=== PATIENT | male | born 1965 | race Caucasian/White ===

== ENCOUNTER → 2019-06-15 | Outpatient (CLI) | payer BC ==
--- NOTE | 2019-06-15 14:04 | XR ---
Left knee HISTORY: Knee pain 3 views of the left knee Bone mineralization, joint spaces and alignment are maintained. No fracture or dislocation. Suprapate llar increased density. There is soft tissue swelling IMPRESSION: Suspect joint effusion, correlate. Soft tissue swelling.
== END | disposition home or self-care (01) ==
LOC: RADXRMAIN 10:50
PROVIDERS: ATTEND Physician Assistant
DX: M25.462 Effusion, left knee (principal)

== ENCOUNTER → 2020-04-21 | Outpatient (CLI) | payer BC | END | disposition home or self-care (01) | LOC: LABWHC1 14:09 | PROVIDERS: ATTEND Family Medicine | DX: R51 Headache (principal); R68.83 Chills (without fever); M62.81 Muscle weakness (generalized); R43.9 Unspecified disturbances of smell and taste | CPT/HCPCS: U0003; C9803 ==

== ENCOUNTER → 2021-04-01 | Outpatient (CLI) | payer BC ==
--- NOTE | 2021-04-01 14:54 | XR ---
EXAMINATION TYPE: XR cervical spine comp DATE OF EXAM: 04/01/2021 COMPARISON: NONE HISTORY: Pain TECHNIQUE: Four views are submitted. FINDINGS: The odontoid is intact. There are no compression deformities. The prevertebral soft tissue structur es are within normal limits. There is moderate to severe degenerative disc disease C5-C6 with anterio r osteophyte formation and posterior spondylosis. IMPRESSION: 1. Moderate to severe degenerative disc disease C5-C6 consider follow-up MRI.
--- NOTE | 2021-04-01 14:55 | XR ---
EXAM TYPE: LUMBAR SPINE X RAY SERIES COMPARISON: NONE HISTORY: Pain TECHNIQUE: 4 views are submitted. FINDINGS: Alignment is anatomic. The pedicles are intact. The transverse processes are intact. There is mult ilevel mild to moderate degenerative disc disease most marked at levels 4-5 and L5-S1. Facet arthropa thy at levels L4-5 and L5-S1. Slight anterolisthesis of L4 on L5. IMPRESSION: 1. Multilevel degenerative disc disease with advanced facet arthropathy involving the lower lumbar sp ine. Suspect foraminal encroachment L4-5 and L5-S1. 2. Mild grade 1 anterolisthesis L4 on L5.
--- NOTE | 2021-04-01 14:56 | XR ---
EXAMINATION TYPE: XR pelvis AP view DATE OF EXAM: 04/01/2021 COMPARISON: NONE HISTORY: Pain The osseous structures are intact and the joint spaces are preserved. No acute fracture is seen. Vi sualized bowel gas pattern is nonspecific. Hypertrophic changes of the acetabulum. Calcifications in the pelvis likely vascular. Very mild sclerosis involving the inferior left SI joint. IMPRESSION: 1. Cannot exclude a mild left-sided sacroiliitis..
== END | disposition home or self-care (01) ==
LOC: RADXRMAIN 14:22
PROVIDERS: ATTEND Nurse Practitioner Family
DX: M50.322 Other cervical disc degeneration at C5-C6 level (principal); M51.36 Other intervertebral disc degeneration, lumbar region; M43.16 Spondylolisthesis, lumbar region; M47.816 Spondylosis without myelopathy or radiculopathy, lumbar region
CPT/HCPCS: 72050; 72110; 72170

== ENCOUNTER 2022-05-27 10:09 | Emergency (ER) | payer OTHER, BC ==
[2022-05-27 10:21] VITALS: BP 139/88; PULSE 65; RESP 18; TEMP 98.3
[2022-05-27] MEDS ORDERED: LIDOCAINE 1% INJ 10MG/ML (30 ML VIAL-PF) SQ ONE (11:09)
--- NOTE | 2022-05-27 11:09 | ED ---
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 He reports the cut came from the tile itself. He denies any fragments from the tile or range of motion impairment. He states that his tetanus vaccination is up-to-date. He denies any other complaints or concerns at this time. He has a past medical history significant for hyperlipidemia, hypertension and hypothyroidism. (Azra Vitale) - Related Data Home Medications Medication Instructions Recorded Confirmed Fluticasone Nasal [place] [Flonase 2 spr EA NOSTRIL DAILY PRN 12/26/15 12/31/15 Nasal [place]] Hydrocodone/Acetaminophen 1 tab PO Q6H PRN 12/26/15 12/31/15 [Hydrocodon-Acetaminophen 5-325] LORazepam [Lorazepam] 1 mg PO Q8H PRN 12/26/15 12/31/15 Levothyroxine Sodium [Synthroid] 25 mcg PO HS 12/26/15 12/31/15 Lisinopril/Hydrochlorothiazide 1 tab PO HS 12/26/15 12/31/15 [Lisinopril-Hctz 20-25 mg Tab] Naproxen 500 mg PO BID PRN 12/26/15 12/31/15 Venlafaxine HCl [Venlafaxine HCl 150 mg PO HS 12/26/15 12/31/15 ER] Previous Rx's Medication Instructions Recorded Pantoprazole Sodium [Protonix] 20 mg PO DAILY #30 tab 12/31/15 Allergies Allergy/AdvReac Type Severity Reaction Status Date / Time No Known Allergies Allergy Verified 05/27/22 10:20 Review of Systems ROS Other: All systems not noted in ROS Statement are negative. <Azra Vitale - Last Filed: 06/01/22 17:02> ROS Other: All systems not noted in ROS Statement are negative. <BatresAndrey - Last Filed: 06/02/22 20:53> ROS Statement: Those systems with pertinent positive or pertinent negative responses have been documented in the HPI. Past Medical History Past Medical History: Hyperlipidemia, Hypertension, Thyroid Disorder History of Any Multi-Drug Resistant Organisms: None Reported Past Surgical History: Appendectomy Additional Past Surgical History / Comment(s): sinus surgery Past Anesthesia/Blood Transfusion Reactions: Motion Sickness Past Psychological History: Anxiety, Panic Disorder Smoking Status: Never smoker Past Alcohol Use History: None Reported Past Drug Use History: None Reported - Past Family History Mother Additional Family Medical History / Comment(s): yony Father Family Medical History: Hypertension Additional Family Medical History / Comment(s): anxiety <Azra Vitale - Last Filed: 06/01/22 17:02> General Exam Limitations: no limitations General appearance: alert, in no apparent distress Head exam: Present: atraumatic, normocephalic, normal inspection Eye exam: Present: normal appearance, PERRL, EOMI. Absent: scleral icterus, conjunctival injection, periorbital swelling ENT exam: Present: normal exam, mucous membranes moist Neck exam: Present: normal inspection, full ROM Respiratory exam: Absent: respiratory distress, accessory muscle use Cardiovascular Exam: Present: regular rate GI/Abdominal exam: Absent: distended Left Hand Wrist exam: Present: full ROM, laceration (Proximal to middle finger between knuckles approximately 1.5 cm in length). Absent: tenderness, swelling, deformity, crepitus, dislocation, amputation, nail avulsion Vascular: Absent: vascular compromise Back exam: Present: normal inspection Neurological exam: Present: alert, oriented X3, CN II-XII intact Psychiatric exam: Present: normal affect, normal mood Skin exam: Present: other (Laceration as above) <Azra Vitale - Last Filed: 06/01/22 17:02> Course Vital Signs 05/27/22 05/27/22 10:18 12:46 Temperature 98.3 F Pulse Rate 65 Respiratory 18 18 Rate Blood Pressure 139/88 O2 Sat by Pulse 98 Oximetry Procedures - Laceration Laceration #1 Consent Obtained: verbal consent Indication: laceration Site: hand Size (cm): 1 (1.5) Description: linear Depth: simple, single layer Anesthesia Technique: local infiltration Amount (mls): 1 Pre-repair: wound explored, irrigated extensively Type of Sutures: nylon Size of Sutures: 4-0 Number of Sutures: 3 Technique: simple, interrupted Patient Tolerated Procedure: well, no complications <Azra Vitale - Last Filed: 06/01/22 17:02> Medical Decision Making - Radiology Data Radiology results: report reviewed, image reviewed <Azra Vitale - Last Filed: 06/01/22 17:02> - Medical Decision Making 56-year-old male presenting to the emergency room with laceration to left hand distal to his middle finger. Will obtain x-ray to rule out any foreign body. X-ray shows possible foreign body/fragment is located in the index finger as interpreted by me this foreign body is not related to current laceration and not palpable. Findings discussed with patient. Will proceed with laceration closure. Patient tolerated laceration closure well without complications. Wound care discussed. Return parameters to the emergency room reviewed. Will discharge home and clear to return to work starting tomorrow. Case discussed with Dr. Batres. (Azra Vitale) - Radiology Data X-ray left hand complete: Foreign body 0.5 x 0.1 mm projecting in the palmar aspect and radial side of soft tissue the base of the index finger. No acute osseous abnormality seen. Moderate osteoarthritic changes within the index finger and mild to moderate elsewhere in the fingers and thumb base. (Azra Vitale) Disposition Is patient prescribed a controlled substance at d/c from ED?: No Time of Disposition: 12:16 <Azra Vitale - Last Filed: 06/01/22 17:02> Is patient prescribed a controlled substance at d/c from ED?: No <Andrey Batres - Last Filed: 06/02/22 20:53> Clinical Impression: Laceration Disposition: HOME SELF-CARE Condition: Fair Instructions (If sedation given, give patient instructions): Care For Your Stitches (ED), Laceration (ED) Additional Instructions: Please keep wound clean and dry. Monitor for signs and symptoms of infection and seek medical attention as appropriate if symptoms occur. Please follow-up with your primary care provider for suture removal in 7 days. Please return to the Emergency Department if symptoms worsen or any other concerns. Referrals: Victoriano Bernabe DO [Primary Care Provider] - 1-2 days
--- NOTE | 2022-05-27 11:59 | XR ---
EXAMINATION TYPE: XR hand complete 3 views LT DATE OF EXAM: 05/27/2022 Comparison: None Clinical History: 56-year-old male pain, laceration Findings: There is a linear high density foreign body fragment within the palmar and radial sided soft tissues at the base of the index finger. Moderate degenerative change second PIP and DIP joints. Also first I P joint. Mild throughout the other interphalangeal joints. Mild to moderate degenerative change at th e base of the thumb and also at the distal radioulnar joint. No acute fracture, subluxation, dislocat ion. Impression: 1. No acute osseous abnormality seen. 2. Possible tiny 0.5 x 0.1 mm tile fragment or other foreign body projecting at the palmar and radial sided soft tissues at the base of the index finger. 3. Moderate osteoarthritic change within the index finger and scattered mild to moderate elsewhere in the fingers and base of the thumb.
== END 2022-05-27 12:46 | disposition home or self-care (01) ==
LOC: EC 10:09
DX: S61.412A Laceration without foreign body of left hand, initial encounter (principal); I10 Essential (primary) hypertension; E78.5 Hyperlipidemia, unspecified; E03.9 Hypothyroidism, unspecified; Z79.890 Hormone replacement therapy; Z79.899 Other long term (current) drug therapy; W26.8XXA Contact with other sharp object(s), not elsewhere classified, initial encounter
CPT/HCPCS: 73130; 99283; 12001; J2001